=== PATIENT | male | born 1960 | race Caucasian/White ===

== ENCOUNTER 2018-10-08 15:55 | Inpatient (IN) | payer OTHER ==
[2018-10-08] MEDS ORDERED: DIPH,PERTUS(ACELL)TETVAC-LF 0.5 ML VIAL IM ONE (16:27)
[2018-10-08] MEDS ORDERED: SODIUM CHLORIDE 0.9% 1,000 ML IV SCH (16:30)
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
[2018-10-08 16:54] LABS: Basophils # (A) 0.1 k/uL (0-0.2); Basophils % (A) 1 %; Eosinophils # (A) 0.1 k/uL (0-0.7); Eosinophils % (A) 2 %; HCT 54.8 % (39.0-53.0); Lymphocytes # (A) 1.2 k/uL (1.0-4.8); Lymphocytes % (A) 18 %; MCH 30.9 pg (25.0-35.0); MCHC 34.9 g/dL (31.0-37.0); MCV 88.6 fL (80.0-100.0); Mean Platelet Volume 7.6; Monocytes # (A) 0.4 k/uL (0-1.0); Monocytes % (A) 6 %; Neutrophils # (A) 4.8 k/uL (1.3-7.7); Neutrophils % (A) 71 %; Platelet Count 178 k/uL (150-450); RBC 6.19 m/uL (4.30-5.90); RDW 12.8 % (11.5-15.5); WBC 6.7 k/uL (3.8-10.6)
[2018-10-08 16:58] LABS: ALT 30 U/L (21-72); AST 40 U/L (17-59); Albumin 4.5 g/dL (3.5-5.0); Alkaline Phosphatase 58 U/L (38-126); Anion Gap 12 mmol/L; Blood Urea Nitrogen 11 mg/dL (9-20); Calcium 9.9 mg/dL (8.4-10.2); Carbon Dioxide 23 mmol/L (22-30); Chloride 93 mmol/L (98-107); Glucose 117 mg/dL (74-99); Potassium 4.4 mmol/L (3.5-5.1); Sodium 128 mmol/L (137-145); Total Bilirubin 1.7 mg/dL (0.2-1.3); Total Protein 7.3 g/dL (6.3-8.2)
[2018-10-08 17:00] LABS: HGB 19.1 gm/dL (13.0-17.5)
[2018-10-08 17:01] LABS: Creatine Kinase 277 U/L (55-170)
[2018-10-08 17:14] LABS: Creatine Kinase MB 3.5 ng/mL (0.0-2.4); Troponin I <0.012 ng/mL (0.000-0.034)
[2018-10-08] MEDS ORDERED: TOPICAL SKIN ADHESIVE 1 EACH AMP TOPICAL ONE (17:38)
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
--- NOTE | 2018-10-08 18:24 | XR ---
EXAMINATION: XR chest 2V DATE AND TIME: 10/08/2018 4:58 PM CLINICAL INDICATION: Pain TECHNIQUE: PA and lateral COMPARISON: None. FINDINGS: The lungs are clear. The pleural spaces are negative. The cardiac silhouette is laterally enlarged. The thoracic aorta is ectatic. The skeletal structures and soft tissues are negative for acute findings. IMPRESSION: 1) NO DEFINITE ACUTE PROCESS. 2) MODERATELY ENLARGED CARDIAC SILHOUETTE; ECTATIC AORTA.
[2018-10-08] MEDS ORDERED: NALOXONE 0.4 MG/ML 1 ML VIAL IV PRN (18:51)
[2018-10-08] MEDS ORDERED: ACETAMINOPHEN TAB 325 MG TAB PO PRN (18:51)
[2018-10-08 23:26] LABS: Creatine Kinase 256 U/L (55-170)
[2018-10-08] MEDS: SODIUM CHLORIDE 0.9% 1,000 ML IV SCH (23:32)
[2018-10-08 23:39] LABS: Troponin I <0.012 ng/mL (0.000-0.034)
[2018-10-09 00:31] VITALS: BMI 38.9
[2018-10-09] MEDS: HYDROcodone/APAP 10-325MG 1 EACH TAB PO SCH ×2 (01:17→20:15)
[2018-10-09] MEDS: OXYBUTYNIN CHLORIDE 5 MG TAB PO SCH ×3 (01:18→20:15)
[2018-10-09] MEDS: ATENOLOL 50 MG TAB PO SCH ×2 (01:18→20:18)
[2018-10-09] MEDS: ALPRAZolam 1 MG TAB PO SCH ×2 (01:18→20:15)
[2018-10-09] MEDS: traZODone HCL 50 MG TAB PO SCH ×2 (01:18→20:15)
[2018-10-09 04:43] LABS: Creatine Kinase 266 U/L (55-170)
[2018-10-09 04:55] LABS: Creatine Kinase MB 2.8 ng/mL (0.0-2.4); Troponin I <0.012 ng/mL (0.000-0.034)
--- NOTE | 2018-10-09 09:08 | US ---
EXAMINATION TYPE: US carotid duplex BILAT DATE OF EXAM: 10/09/2018 COMPARISON: NONE CLINICAL HISTORY: tia. Syncope, history of TIA EXAM MEASUREMENTS: RIGHT: Peak Systolic Velocity (PSV) cm/sec ----- Right CCA: 55.9 ----- Right ICA: 57.5 ----- Right ECA: 54.9 ICA/CCA ratio: 1.0 RIGHT: End Diastole cm/sec ----- Right CCA: 9.8 ----- Right ICA: 13.9 ----- Right ECA: 7.8 LEFT: Peak Systolic Velocity (PSV) cm/sec ----- Left CCA: 57.0 ----- Left ICA: 106.0 ----- Left ECA: 52.6 ICA/CCA ratio: 1.9 LEFT: End Diastole cm/sec ----- Left CCA: 7.6 ----- Left ICA: 18.0 ----- Left ECA: 7.6 VERTEBRALS (direction of flow): Right Vertebral: Antegrade Left Vertebral: Antegrade Rhythm: Normal Mild plaque bilateral bifurcations. No evidence of increased velocities. No evidence of significant s tenosis Some intimal thickening is noted along the left common carotid artery. IMPRESSION: Mild atheromatous plaquing and intimal thickening without significant flow-limiting sten osis. Criteria for Assigning % of Stenosis / Diameter reduction (Estimation based on the indirect measurements of the internal carotid artery velocities (ICA PSV). 1. Normal (no stenosis)=ICA PSV < 125 cm/s: ratio < 2.0: ICA EDV<40 cm/s. 2. Less than 50% stenosis=ICA PSV < 125 cm/s: ratio < 2.0: ICA EDV<40 cm/s. 3. 50 to 69% stenosis=ICA PSV of 125 to 230 cm/s: ration 2.0 ? 4.0: ICA EDV 40-100 cm/s. 4. Greater than 70% stenosis to near occlusion= ICA PSV > 230 cm/s: ratio > 4.0: ICA EDV > 100 cm/s. 5. Near occlusion= ICA PSV velocities may be low or undetectable: variable ratio and ICA EDV. 6. Total occlusion=unable to detect flow.
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
--- NOTE | 2018-10-09 11:49 | P.PN ---
Progress Note - Text Progress Note Date: 10/09/18 This is an addendum to the cardiology consultation dictated. Now that we have retrieved the EMS notes and documentation, it does appear that the patient had SVT with a heart rate up in the 160s 170s. Patient was encouraged to bear down onto occasions, converted to sinus, and again went into SVT requiring adenosine. Subsequently patient converted to normal sinus rhythm. We will request a consultation with Dr. Riddle for possible SVT ablation. Further recommendations to follow. DNP note has been reviewed, I agree with a documented findings and plan of care. Patient was seen and examined.
--- NOTE | 2018-10-09 18:05 | ECHOF ---
Referral Reason:tia MEASUREMENTS -------- HEIGHT: 182.9 cm WEIGHT: 127.0 kg BP: RVIDd: 3.3 cm (< 3.3) IVSd: 1.4 cm (0.6 - 1.1) LVIDd: 4.5 cm (3.9 - 5.3) LVPWd: 1.5 cm (0.6 - 1.1) IVSs: 1.8 cm LVIDs: 3.9 cm LVPWs: 1.3 cm Ao Diam: 4.5 cm (2.0 - 3.7) AV Cusp: 1.8 cm (1.5 - 2.6) LA Diam: 4.7 cm (2.7 - 3.8) MV EXCURSION: 15.618 mm (> 18.000) MV EF SLOPE: 64 mm/s (70 - 150) EPSS: 0.8 cm MV E Kendrick: 0.27 m/s MV DecT: 303 ms MV A Kendrick: 0.73 m/s MV E/A Ratio: 0.37 RAP: 5.00 mmHg RVSP: 13.59 mmHg FINDINGS -------- Sinus rhythm. Morbid Obesity This was a techncally difficult study with suboptimal views, , Lumason utilized for enhancement of im ages. The left ventricular size is normal. There is moderate concentric left ventricular hypertrophy. O verall left ventricular systolic function is low-normal with, an EF between 50 - 55 %. The right ventricle is normal in size. The left atrial size is normal. The right atrial size is normal. 5.0mg OF Lumason UTLIZED: 2 OR MORE WALL SEGMENTS NOT VISUALIZED. The aortic valve is trileaflet, and appears structurally normal. No aortic stenosis or regurgitation. Mild mitral regurgitation is present. Mild tricuspid regurgitation present. There is no evidence of pulmonary hypertension. The right v entricular systolic pressure, as measured by Doppler, is 13.59mmHg. The pulmonic valve was not well visualized. The aortic root size is normal. There is no pericardial effusion. CONCLUSIONS -------- 1. Morbid Obesity 2. This was a techncally difficult study with suboptimal views, , Lumason utilized for enhancement of images. 3. The left ventricular size is normal. 4. There is moderate concentric left ventricular hypertrophy. 5. Overall left ventricular systolic function is low-normal with, an EF between 50 - 55 %. 6. The right ventricle is normal in size. 7. The left atrial size is normal. 8. The right atrial size is normal. 9. 5.0mg OF Lumason UTLIZED: 2 OR MORE WALL SEGMENTS NOT VISUALIZED. 10. The aortic valve is trileaflet, and appears structurally normal. No aortic stenosis or regurgitat ion. 11. Mild mitral regurgitation is present. 12. Mild tricuspid regurgitation present. 13. There is no evidence of pulmonary hypertension. 14. The right ventricular systolic pressure, as measured by Doppler, is 13.59mmHg. 15. The pulmonic valve was not well visualized. 16. The aortic root size is normal. 17. There is no pericardial effusion. STATE ASSESSED PROPERTIES DIRECTOR: Paulette Sales RDCS
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
[2018-10-09] MEDS: SODIUM CHLORIDE 0.9% 1,000 ML IV SCH (19:48)
--- NOTE | 2018-10-10 08:02 | PN ---
PROGRESS NOTE SUBJECTIVE: This is a white male, a 58-year-old with syncope and collapse. Neurology and Cardiology workups are pending. CARDIOVASCULAR: S1, S2. LUNGS: Clear. No neurologic focus for weakness today. LABS: Echo and carotid are pending. EEG is pending. Possible discharge home in the next 24 to :48 hours if cleared by Cardiology and Neurology. No further evidence of a TIA has been seen since admission. No near-syncope or weakness. Carotid came back, showed minimal blockage. No significant blockage. EEG was within normal limits. Echocardiogram shows 50%-55% ejection fraction, otherwise normal. Await clearance for possible discharge in the next 24-48 hours. MMODL / IJN: [id number] /
[2018-10-10] MEDS: OXYBUTYNIN CHLORIDE 5 MG TAB PO SCH ×2 (08:39→20:55)
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
[2018-10-10] MEDS: SODIUM CHLORIDE 0.9% 1,000 ML IV SCH (20:55)
[2018-10-10] MEDS: HYDROcodone/APAP 10-325MG 1 EACH TAB PO SCH (20:55)
[2018-10-10] MEDS: ALPRAZolam 1 MG TAB PO SCH (20:55)
[2018-10-10] MEDS: traZODone HCL 50 MG TAB PO SCH (20:55)
[2018-10-11 00:39] VITALS: RESP 16
--- NOTE | 2018-10-11 08:10 | PN ---
PROGRESS NOTE SUBJECTIVE: 58-year-old white male had echo carotid, which were normal. He is awaiting possible SVT consult for possible ablation. Neurology has cleared him for discharge. Cardiovascular S1-S2. Lungs clear. GI soft. Hematology negative Homans. ASSESSMENT: Supraventricular tachycardia. Awaiting cardiac recommendations for possible treatment of this including home medications, or cardioversion, etc. Please see further orders. MMODL / IJN: [id number] /
[2018-10-11] MEDS: OXYBUTYNIN CHLORIDE 5 MG TAB PO SCH (08:59)
[2018-10-11] MEDS ORDERED: ATENOLOL 25 MG TAB PO SCH (09:00)
[2018-10-11 09:12] VITALS: BP 148/97; PULSE 78; TEMP 96.6
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
== END 2018-10-11 11:40 | disposition home or self-care (01) | DRG 309 ==
LOC: EC 15:55 → 3SCARD 18:52
PROVIDERS: ADMIT Family Medicine; ATTEND Family Medicine
DX: I47.1 Supraventricular tachycardia (principal); E87.1 Hypo-osmolality and hyponatremia; E78.5 Hyperlipidemia, unspecified; I10 Essential (primary) hypertension; I71.2 Thoracic aortic aneurysm, without rupture; S01.01XA Laceration without foreign body of scalp, initial encounter; S01.81XA Laceration without foreign body of other part of head, initial encounter; V43.52XA Car driver injured in collision with other type car in traffic accident, initial encounter; Y92.410 Unspecified street and highway as the place of occurrence of the external cause; Z79.82 Long term (current) use of aspirin; Z86.73 Personal history of transient ischemic attack (TIA), and cerebral infarction without residual deficits; Z87.891 Personal history of nicotine dependence; R74.8 Abnormal levels of other serum enzymes; Z79.899 Other long term (current) drug therapy
CPT/HCPCS: 12011; 36415; 70450; 71046; 72125; 80053; 82550; 82553; 83880; 84443; 84484; 85025; 90471; 90715; 93005; 93306; 93880; 95816; 99285

== ENCOUNTER 2018-10-31 08:24 | Day surgery (SDC) | payer OTHER ==
[2018-10-28 13:58] VITALS: BMI 40.6
[~2018-10-31 08:24] MED LIST: LACTATED RINGERS 1,000 ML IV SCH; SODIUM CHLORIDE 0.9% 1,000 ML IV SCH
[2018-10-31] MEDS ORDERED: LIDOCAINE 1% INJ 10MG/ML (20 ML MDV) ONE (09:24)
[2018-10-31] MEDS ORDERED: PROPOFOL 10 MG/ML 20 ML VIAL IV ONE (09:27)
[2018-10-31] MEDS ORDERED: fentaNYL (PF) 50 MCG/ML 2 ML AMP ONE (09:27)
[2018-10-31] MEDS ORDERED: ISOPROTERENOL 250 MCG/1.25 ML SYR IV ONE (09:27)
[2018-10-31] MEDS ORDERED: DEXAMETHASONE SOD PHOS (MDV) 100 MG/10 ML VIAL ONE (09:27)
[2018-10-31] MEDS ORDERED: KETOROLAC 30 MG/ML 1 ML VIAL ONE (09:27)
[2018-10-31] MEDS ORDERED: MIDAZOLAM 2 MG/2 ML VIAL ONE (09:27)
[2018-10-31] MEDS ORDERED: LIDOCAINE 1% INJ 10MG/ML (20 ML MDV) SQ ONE (09:51)
[2018-10-31] MEDS: LIDOCAINE 1% INJ 10MG/ML (20 ML MDV) SQ ONE ×2 (09:51→10:28)
[2018-10-31] MEDS ORDERED: ACETAMINOPHEN IV (For NPO) 1,000 MG in EMPTY BAG 1 BAG IVPB ONE (11:27)
[2018-10-31] MEDS ORDERED: ACETAMINOPHEN TAB 325 MG TAB PO PRN (11:27)
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
[2018-10-31] MEDS: HYDROcodone/APAP 5-325MG 1 EACH TAB PO PRN ×2 (13:48→20:08)
[2018-10-31 14:16] VITALS: RESP 16
[2018-10-31 17:34] VITALS: TEMP 97.8
[2018-10-31] MEDS: OXYBUTYNIN CHLORIDE 5 MG TAB PO SCH (20:08)
[2018-10-31] MEDS ORDERED: ALPRAZolam 1 MG TAB PO SCH (21:00)
[2018-10-31] MEDS ORDERED: traZODone HCL 50 MG TAB PO SCH (21:00)
--- NOTE | 2018-11-01 07:46 | P.DS ---
Providers Attending physician: Jonathon Riddle Primary care physician: [facility] Course: 0365 Plan - Discharge Summary Discharge Rx Participant: No New Discharge Prescriptions: New Losartan [Cozaar] 150 mg PO DAILY #90 tab Discontinued Losartan Potassium 100 mg PO DAILY Atenolol [Tenormin] 50 mg PO HS No Action traZODone HCL 50 mg PO HS Oxybutynin Chloride [Ditropan] 5 mg PO BID Hydrocodone/Acetaminophen [[place] 10-325] 1 tab PO HS Aspirin EC [Ecotrin Low Dose] 81 mg PO DAILY ALPRAZolam [Xanax] 1 mg PO HS Terbinafine [LamISIL] 250 mg PO DAILY Atorvastatin [Lipitor] 20 mg PO DAILY Discharge Medication List ALPRAZolam [Xanax] 1 mg PO HS 10/08/18 [History] Aspirin EC [Ecotrin Low Dose] 81 mg PO DAILY 10/08/18 [History] Atorvastatin [Lipitor] 20 mg PO DAILY 10/08/18 [History] Hydrocodone/Acetaminophen [[place] 10-325] 1 tab PO HS 10/08/18 [History] Oxybutynin Chloride [Ditropan] 5 mg PO BID 10/08/18 [History] Terbinafine [LamISIL] 250 mg PO DAILY 10/08/18 [History] traZODone HCL 50 mg PO HS 10/08/18 [History] Losartan [Cozaar] 150 mg PO DAILY #90 tab 11/01/18 [Rx] Follow up Appointment(s)/Referral(s): Jae Hair MD [STAFF PHYSICIAN] - 6 Weeks (Follow-up with Dr. Montague/Mireya Clement in 1-2 weeks for groin check Stop atenolol) Patient Instructions/Handouts: Supraventricular Tachycardia (DC), Heart Healthy Diet (DC), Cardiac Ablation (DC) Activity/Diet/Wound Care/Special Instructions: Post EP study - Ablation instructions 1. Keep access sites dry for 2 days. 2. No heavy lifting or straining for 2 days. 3. Avoid bending the hips repeatedly for 2 days. 4. You may go up and down stairs slowly Call if the following is noted 1. Bleeding, increasing swelling or pain at the access sites. 2. Increasing chest discomfort, especially upon taking a deep breath. 3. Increasing shortness of breath, at rest or with exertion. 4. Undue cough / phlegm 5. Difficulty or pain while swallowing. 6. Pain or change in color in the extremities. 7. Fever, chills, rigors. 8. Increasing headache or neurologic symptoms. 9. Dizziness, fainting, palpitations Stop atenolol Increase losartan to 150 mg by mouth daily Discharge Disposition: HOME SELF-CARE
[2018-11-01] MEDS: OXYBUTYNIN CHLORIDE 5 MG TAB PO SCH (08:03)
[2018-11-01 08:08] VITALS: BP 156/96; PULSE 88
[2018-11-01] MEDS ORDERED: TERBINAFINE 250 MG TAB PO SCH (09:00)
[2018-11-01] MEDS ORDERED: LOSARTAN 50 MG TAB PO SCH ×2 (09:00)
[2018-11-01] MEDS ORDERED: ATORVASTATIN 20 MG TAB PO SCH (09:00)
[2018-11-01] MEDS ORDERED: ASPIRIN 81 MG PO SCH (09:00)
== END 2018-11-01 10:40 | disposition home or self-care (01) ==
LOC: CATHEP 08:24 → 3SCARD 11:24 → CATHEP 11-01 10:40
PROVIDERS: ATTEND Internal Medicine Clinical Cardiac Electrophysiology
DX: I47.1 Supraventricular tachycardia (principal); I44.0 Atrioventricular block, first degree; I10 Essential (primary) hypertension; E87.1 Hypo-osmolality and hyponatremia; E78.5 Hyperlipidemia, unspecified; I25.10 Atherosclerotic heart disease of native coronary artery without angina pectoris; I08.1 Rheumatic disorders of both mitral and tricuspid valves; E66.01 Morbid (severe) obesity due to excess calories; Z68.41 Body mass index [BMI] 40.0-44.9, adult; Z86.73 Personal history of transient ischemic attack (TIA), and cerebral infarction without residual deficits; Z79.82 Long term (current) use of aspirin; Z79.891 Long term (current) use of opiate analgesic; Z79.899 Other long term (current) drug therapy
CPT/HCPCS: 93623; 93613; 93653; C1894; C1769 ×2; C1730 ×2; C1732; C1893; J2250; J2001; J3010; J1885; J1100; J2704